=== PATIENT | female | born 2000 | race Caucasian/White ===

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

== ENCOUNTER 2021-04-05 15:38 | Emergency (ER) | payer MEDICAID ==
[~2021-04-05] VITALS: Ht 157.5 cm; Wt 49.9 kg
[2021-04-05 15:43] VITALS: BP 102/64
--- NOTE | 2021-04-05 15:56 | NUR ---
PT AMBULATED TO BED 10
--- NOTE | 2021-04-05 16:07 | NUR ---
21 YEAR OLD FEMALE COMPLAINS OF RIGHT EYE PAIN X 2 YEARS. PT DENIES BLURRY VISSION OR DISCHARGE. INFLAMMATION PRESENT AROUND DUCT OF EYE. AOX4, BREATHING EVEN AND UNLABORED, SKIN WARM AND DRY. BED IN LOWEST POSITION, LOCKED, BED RAIL UPX1. PMH - DENIES ALLERGIES - NKA
[2021-04-05] MEDS ORDERED: ERYT5OIN51 OP (16:11)
[2021-04-05 16:20] VITALS: BP 102/64
--- NOTE | 2021-04-05 16:21 | NUR ---
Patient discharged with v/s stable. Written and verbal after care instructions about stye given and explained. Patient alert, oriented and verbalized understanding of instructions. Ambulatory with steady gait. All questions addressed prior to discharge. ID band removed. Patient advised to follow up with PMD. Rx of erythromycin given. Patient educated on indication of medication including possible reaction and side effects. Opportunity to ask questions provided and answered.
== END 2021-04-05 16:21 | disposition home or self-care (01) ==
LOC: MED 15:38
DX: H00.012 Hordeolum externum right lower eyelid (principal); J45.909 Unspecified asthma, uncomplicated
CPT/HCPCS: 99283

== ENCOUNTER 2021-04-09 13:23 | Emergency (ER) | payer MEDICAID ==
[~2021-04-09] VITALS: Ht 157.5 cm; Wt 49.9 kg
[~2021-04-09 13:23] MED LIST: ERYT5OIN51 OP
[2021-04-09 13:47] VITALS: BP 123/52
[2021-04-09] MEDS ORDERED: FAMO-90 PO (14:12)
[2021-04-09 14:37] VITALS: BP 123/52
== END 2021-04-09 14:38 | disposition home or self-care (01) ==
LOC: MED 13:23
DX: K21.9 Gastro-esophageal reflux disease without esophagitis (principal); J45.909 Unspecified asthma, uncomplicated; F12.90 Cannabis use, unspecified, uncomplicated; Z79.899 Other long term (current) drug therapy
CPT/HCPCS: 93005; 99283

== ENCOUNTER 2021-05-16 07:30 | Emergency (ER) | payer MEDICAID, SELFPAY ==
[~2021-05-16] VITALS: Ht 154.9 cm; Wt 47.6 kg
[~2021-05-16 07:30] MED LIST changes: +FAMO-90 PO
[2021-05-16 07:36] VITALS: BP 112/60
--- NOTE | 2021-05-16 07:40 | NUR ---
Pt bib mother for fever, cough, sore throat, body aches, and CP from cough x4 days. Pt afebrile at this time. Per pt she has been having emesis episodes x3 every morning the last 3 days. Denies nausea at this time. Pt came into contact with someone that tested positive x1 week ago. Allergies: NKA Med hx: asthma
--- NOTE | 2021-05-16 07:55 | NUR ---
MD Ann at pt chairside
[2021-05-16] MEDS ORDERED: ROB PO (08:53)
[2021-05-16] MEDS ORDERED: PSEU120T23 PO (08:53)
--- NOTE | 2021-05-16 08:55 | NUR ---
Covid swab collected and sent to lab
--- NOTE | 2021-05-16 08:59 | NUR ---
Patient discharged with v/s stable. Written and verbal after care instructions given and explained. Patient alert, oriented and verbalized understanding of instructions. Ambulatory with steady gait. All questions addressed prior to discharge. ID band removed. Patient advised to follow up with PMD. Rx of Pseudoephedrine HCL and Guaifenesin was given. Patient educated on indication of medication including possible reaction and side effects. Opportunity to ask questions provided and answered.
[2021-05-16 09:06] VITALS: BP 112/60
== END 2021-05-16 08:59 | disposition home or self-care (01) ==
LOC: MED 07:30
DX: J06.9 Acute upper respiratory infection, unspecified (principal); Z20.822 Contact with and (suspected) exposure to COVID-19; J45.909 Unspecified asthma, uncomplicated; Z79.899 Other long term (current) drug therapy
CPT/HCPCS: 87426; 99283; U0003

== ENCOUNTER 2022-04-09 10:45 | Emergency (ER) | payer MEDICAID ==
[~2022-04-09] VITALS: Ht 154.9 cm; Wt 51.3 kg
[~2022-04-09 10:45] MED LIST changes: +PSEU120T23 PO; +ROB PO
[2022-04-09 10:52] VITALS: BP 127/73
--- NOTE | 2022-04-09 11:11 | NUR ---
22 Y/O FEMALE C/O R FLANK PAIN X4 DAYS, PAIN NON-RADIATING RATED 7/10.PT STATES HAD SIMILAR SYMPTOMS LAST YEAR AND WAS DX WITH KIDNEY STONES. DENIES TAKING MEDS FOR SYMPTOMS. PT DENIES CHEST PAIN, SOB. PT DENIES FEVER OR CHILS. PMH: DENIES NKDA
[2022-04-09 11:37] LABS: BASOPHILS % (AUTO) 0.3 % (0.0-2.0); EOSINOPHILS % (AUTO) 0.2 % (0.0-4.0); HEMATOCRIT 39.7 % (36-48); HEMOGLOBIN 13.2 g/dL (12.0-16.0); LYMPHOCYTES # (AUTO) 1.2 K/uL (2.5-16.5); LYMPHOCYTES % (AUTO) 16.3 % (20.5-51.1); MEAN CORPUSCULAR HEMOGLOBIN 29 pg (27-31); MEAN CORPUSCULAR HGB CONC 33 g/dL (33-37); MONOCYTES # (AUTO) 0.6 K/uL (0.8-1.0); MONOCYTES % (AUTO) 7.7 % (1.7-9.3); NEUTROPHILS # (AUTO) 5.6 K/uL (1.8-7.7); NEUTROPHILS % (AUTO) 75.5 % (42.2-75.2); PLATELET COUNT (AUTO) 204 K/uL (140-450); RED BLOOD CELL COUNT(AUTO) 4.57 MIL/uL (4.20-5.40); RED CELL DISTRIBUTION WIDTH 13.7 % (11.6-13.7); WHITE BLOOD COUNT (AUTO) 7.4 K/uL (4.8-10.8)
[2022-04-09 11:52] LABS: ALBUMIN 4.1 g/dL (3.4-5.0); ANION GAP 11.8 (8-16); CARBON DIOXIDE 24.9 mmol/L (21-32); CREATININE 0.5 mg/dL (0.6-1.3); POTASSIUM 3.7 mmol/L (3.5-5.1); TOTAL BILIRUBIN 0.6 mg/dL (0.0-1.0)
[2022-04-09] MEDS ORDERED: ACETAMINOPHEN EXTRA STRENGTH 500 MG TAB PO ONE (12:55)
[2022-04-09] MEDS ORDERED: ONDANSETRON 4 MG ODT PO ONE (12:55)
[2022-04-09] MEDS ORDERED: cephALEXin 500 MG CAP PO ONE (12:55)
[2022-04-09 12:56] LABS: APPEARANCE,URINE CLEAR (CLEAR); BILIRUBIN,URINE 1+ (NEGATIVE); BLOOD, URINE 1+ (NEGATIVE); COLOR,URINE YELLOW (YELLOW); LEUKOCYTE ESTERASE ,URINE NEGATIVE (NEGATIVE); NITRITE, URINE NEGATIVE (NEGATIVE); PH,URINE 6.5 (5.0-9.0); UGLUCOSE NEGATIVE (NEGATIVE)
[2022-04-09 13:29] LABS: WBC,URINE 0-5 /HPF (0-5)
--- NOTE | 2022-04-09 13:49 | NUR ---
US AT PT BEDSIDE
[2022-04-09] MEDS ORDERED: ACET-10509 PO (15:31)
[2022-04-09] MEDS ORDERED: CEPH-588 PO (15:31)
[2022-04-09 15:37] VITALS: BP 122/74
--- NOTE | 2022-04-09 15:46 | NUR ---
Patient discharged with v/s stable. Written and verbal after care instructions given and explained. Patient alert, oriented and verbalized understanding of instructions. Ambulatory with steady gait. All questions addressed prior to discharge. ID band removed. Patient advised to follow up with PMD. Rx of TYLENOL, KEFLEX given. Patient educated on indication of medication including possible reaction and side effects. Opportunity to ask questions provided and answered.
== END 2022-04-09 15:46 | disposition home or self-care (01) ==
LOC: MED 10:45
DX: R10.9 Unspecified abdominal pain (principal); R35.0 Frequency of micturition; R11.0 Nausea; J45.909 Unspecified asthma, uncomplicated; Z79.899 Other long term (current) drug therapy; Z79.2 Long term (current) use of antibiotics
CPT/HCPCS: 36415; 76770; 80053; 81001; 81025; 83690; 85025; 87086; 99284; Q0092; Q0162

== ENCOUNTER 2022-06-19 16:01 | Emergency (ER) | payer MEDICAID ==
[~2022-06-19] VITALS: Ht 152.4 cm; Wt 49.4 kg
[~2022-06-19 16:01] MED LIST changes: +ACET-10509 PO; +CEPH-588 PO
[2022-06-19 16:07] VITALS: BP 114/77
[2022-06-19] MEDS ORDERED: IBUP-1842 PO (16:34)
[2022-06-19] MEDS ORDERED: PROM118S5 PO (16:34)
--- NOTE | 2022-06-19 16:50 | NUR ---
JENNY SWAB COLLECTED AND WALKED TO LAB
--- NOTE | 2022-06-19 16:51 | NUR ---
22/F PRESENTS TO ED WITH C/O COUGH, HEADACHE, SORE THROAT AND CONGESTION X4 DAYS, STATES SHE WAS EXPOSED TO HER COVID + BROTHER IN LAW. DENIES FEVERS, CHILLS, SOB.
[2022-06-19 17:00] VITALS: BP 114/77
--- NOTE | 2022-06-19 18:01 | NUR ---
Patient discharged with v/s stable. Written and verbal after care instructions ABOUT URI AND COVID 19given and explained. Patient alert, oriented and verbalized understanding of instructions. Ambulatory with steady gait. All questions addressed prior to discharge. ID band removed. Patient advised to follow up with PMD. Rx of MOTRIN WITH PROMETHAZINE-DM SYRUP given. Patient educated on indication of medication including possible reaction and side effects. Opportunity to ask questions provided and answered.
== END 2022-06-19 18:01 | disposition home or self-care (01) ==
LOC: MED 16:01
DX: B34.9 Viral infection, unspecified (principal); Z20.822 Contact with and (suspected) exposure to COVID-19; J45.909 Unspecified asthma, uncomplicated
CPT/HCPCS: 99283

== ENCOUNTER 2024-01-28 00:11 | Emergency (ER) | payer MEDICAID ==
[~2024-01-28] VITALS: Ht 154.9 cm; Wt 56.7 kg
[~2024-01-28 00:11] MED LIST changes: +IBUP-1842 PO; +PROM118S5 PO
[2024-01-28 00:22] VITALS: BP 114/81; PULSE 76; RESP 18; TEMP 97.5; O2SAT 97
[2024-01-28 00:54] LABS: APPEARANCE,URINE CLEAR (CLEAR); BILIRUBIN,URINE NEGATIVE (NEGATIVE); BLOOD, URINE TRACE-I (NEGATIVE); COLOR,URINE YELLOW (YELLOW); LEUKOCYTE ESTERASE ,URINE NEGATIVE (NEGATIVE); NITRITE, URINE NEGATIVE (NEGATIVE); PROTEIN,URINE NEGATIVE (NEGATIVE); UGLUCOSE NEGATIVE (NEGATIVE); UROBILINOGEN,URINE 0.2 EU/dL (0.2 - 1)
[2024-01-28] MEDS: NACL 0.9% 1,000 ML IV ONE (00:57)
[2024-01-28] MEDS: ONDANSETRON 4 MG/2 ML VIAL IVP ONE (00:57)
[2024-01-28] MEDS: PANTOPRAZOLE 40 MG INJ VIAL IVP ONE (01:15)
[2024-01-28] MEDS ORDERED: WATER STERILE 10 ML MC ONE (01:26)
[2024-01-28 01:45] VITALS: BP 91/48; PULSE 76; RESP 14; O2SAT 99
[2024-01-28 01:57] LABS: BASOPHILS % (AUTO) 0.4 % (0.0-2.0); EOSINOPHILS % (AUTO) 0.6 % (0.0-4.0); HEMATOCRIT 40.8 % (36-48); HEMOGLOBIN 13.6 g/dL (12.0-16.0); LYMPHOCYTES # (AUTO) 1.9 K/uL (2.5-16.5); LYMPHOCYTES % (AUTO) 23.7 % (20.5-51.1); MEAN CORPUSCULAR HEMOGLOBIN 30 pg (27-31); MEAN CORPUSCULAR HGB CONC 33 g/dL (33-37); MEAN CORPUSCULAR VOLUME 88.9 fL (80-94); MONOCYTES # (AUTO) 0.6 K/uL (0.8-1.0); MONOCYTES % (AUTO) 8.1 % (1.7-9.3); NEUTROPHILS # (AUTO) 5.4 K/uL (1.8-7.7); NEUTROPHILS % (AUTO) 67.2 % (42.2-75.2); PLATELET COUNT (AUTO) 249 K/uL (140-450); RED BLOOD CELL COUNT(AUTO) 4.59 MIL/uL (4.20-5.40); RED CELL DISTRIBUTION WIDTH 14.2 % (11.6-13.7)
[2024-01-28 02:21] LABS: CALCIUM 8.7 mg/dL (8.5-10.1); CARBON DIOXIDE 26.8 mmol/L (21-32); CREATININE 0.5 mg/dL (0.6-1.3); POTASSIUM 3.8 mmol/L (3.5-5.1)
[2024-01-28] MEDS ORDERED: PANT40EC PO (02:29)
[2024-01-28] MEDS ORDERED: ONDA-188 SL (02:29)
[2024-01-28 02:41] LABS: AMPHETAMINE, URINE NEGATIVE ng/ml (NEG <=1000); BARBITURATE, URINE NEGATIVE ng/ml (NEG <=200); BENZODIAZEPINE, URINE NEGATIVE ng/mL (NEG <=200); CANNABINOID, URINE POSITIVE ng/mL (NEG <=50); COCAINE, URINE NEGATIVE ng/mL (NEG <=300); OPIATE, URINE NEGATIVE ng/mL (NEG <=2000); PHENCYCLIDINE SCREEN,URINE NEGATIVE ng/mL (NEG <=25)
[2024-01-28 02:50] LABS: ALBUMIN 4.2 g/dL (3.4-5.0); BILIRUBIN,DIRECT 0.1 mg/dL (0.0-0.3); TOTAL BILIRUBIN 0.3 mg/dL (0.0-1.0); TOTAL PROTEIN, SERUM 7.6 g/dL (6.4-8.2)
== END 2024-01-28 02:36 | disposition home or self-care (01) ==
LOC: MED 00:11
DX: K92.0 Hematemesis (principal); F12.10 Cannabis abuse, uncomplicated; J45.909 Unspecified asthma, uncomplicated; Z71.6 Tobacco abuse counseling; Z79.1 Long term (current) use of non-steroidal anti-inflammatories (NSAID); Z79.899 Other long term (current) drug therapy
CPT/HCPCS: 36415; 80048; 80076; 80305; 81003; 81025; 83690; 85025; 96361; 96374; 96375; 99284; C9113; J2405; J7030